=== PATIENT | male | born 1980 | race Caucasian/White ===

== ENCOUNTER 2018-06-14 15:33 | Emergency (ER) | payer OTHER, SELFPAY ==
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
[2018-06-14] MEDS ORDERED: Adacel (T-DAP) 0.5 ML VIAL ONE (16:36)
== END 2018-06-14 16:43 | disposition home or self-care (01) ==
LOC: MADERS 15:33
DX: S43.401A Unspecified sprain of right shoulder joint, initial encounter (principal); S40.212A Abrasion of left shoulder, initial encounter; Z23 Encounter for immunization; V43.52XA Car driver injured in collision with other type car in traffic accident, initial encounter
CPT/HCPCS: 71046; 90471; 90715; G0390